=== PATIENT | male | born 1955 | race Caucasian/White ===

== ENCOUNTER → 2018-03-30 | Day surgery (SDC) | payer BC ==
[~2018-03-30] MED LIST: FENTANYL CITRATE/PF 100MCG/2 ML INJ ONE; MIDAZOLAM HCL 2 MG/2 ML VIAL ONE; PLAVIX75 MG PO; PROPOFOL IV EMULSION 10 MG/ML 20 ML VIAL ONE
[2018-03-30 09:30] VITALS: BP 105/67
--- NOTE | 2018-03-30 11:53 | Operative Report ---
DATE OF PROCEDURE: REASON FOR THE PROCEDURE: Colon cancer screening. PROCEDURE: Colonoscopy. DETAILS OF PROCEDURE: After informed written consent and premedications with monitored anesthesia care, standard adult video Olympus colonoscope was introduced into the rectum and all the way into the terminal ileum. Terminal ileum, ascending colon, and cecum appeared to be normal. Hepatic flexure showed 2 diminutive polyps, 3 to 5 mm in size, removed by cold snare. Transverse and descending was normal. Sigmoid showed a 3 mm polyp, removed with cold snare. Retroflexion revealed internal hemorrhoids. IMPRESSION 1. Colon polyp. 2. Internal hemorrhoids. RECOMMENDATIONS: Colonoscopy in 3 years. He does have a family history of colon cancer. Follow up in the office in 3 to 4 weeks to discuss the biopsies. Further recommendations will be based on the patient's clinical course. Patient has been advised to restart the Plavix in 72 hours. Job#: [id number]
== END | disposition home or self-care (01) ==
LOC: OR 06:16
PROVIDERS: ATTEND Internal Medicine Gastroenterology
DX: Z12.11 Encounter for screening for malignant neoplasm of colon (principal); D12.3 Benign neoplasm of transverse colon; D12.5 Benign neoplasm of sigmoid colon; K64.8 Other hemorrhoids; R05 Cough; B19.20 Unspecified viral hepatitis C without hepatic coma; N20.0 Calculus of kidney; F17.210 Nicotine dependence, cigarettes, uncomplicated; Z79.02 Long term (current) use of antithrombotics/antiplatelets
CPT/HCPCS: 45385; 93005; J2250